=== PATIENT | female | born 1965 | race Caucasian/White ===

== ENCOUNTER 2021-01-03 17:15 | Emergency (ER) | payer SELFPAY ==
[2021-01-03 17:32] VITALS: BP 114/56; PULSE 60; RESP 24; TEMP 36.6; O2SAT 96
== END 2021-01-03 17:56 | disposition left against medical advice (07) ==
PROVIDERS: Emergency Provider Emergency Medicine
DX: R10.9 Unspecified abdominal pain (principal)
CPT/HCPCS: 99281; 99282